=== PATIENT | male | born 1990 | race Caucasian/White ===

== ENCOUNTER 2021-09-23 23:23 | Emergency (ER) | payer MEDICAID ==
[~2021-09-23] VITALS: Ht 170.2 cm; Wt 60.0 kg
[2021-09-23] MEDS ORDERED: BACITRACIN ZINC OINT UDPKT TOP ONE (23:30)
[2021-09-23] MEDS ORDERED: TETANUS, DIPHTHERIA, PERTUSSIS VAC/PF 0.5ML (>10YR OLD) IM ONE (23:30)
[2021-09-23] MEDS ORDERED: LIDOCAINE HCL/PF 1% 10 MG/ML 5ML VIAL INFIL ONE (23:30)
[2021-09-23] MEDS ORDERED: HYDROCODONE/ACETAMINOPHEN 5/325MG TABLET PO ONE (23:30)
[2021-09-23] MEDS ORDERED: LIDOCAINE HCL 1% 10 MG/ML 10ML VIAL INJ NR (23:48)
[2021-09-24 00:18] VITALS: BP 121/70
[2021-09-24] MEDS ORDERED: ONDANSETRON 4MG ODT PO ONE (02:30)
[2021-09-24] MEDS ORDERED: CIPR500T5 MT (03:12)
[2021-09-24] MEDS ORDERED: HYDR-4001 MT (03:12)
[2021-09-24] MEDS ORDERED: BO1 TP (03:12)
== END 2021-09-24 03:36 | disposition home or self-care (01) ==
LOC: ER 23:23
DX: S01.311A Laceration without foreign body of right ear, initial encounter (principal); S06.890A Other specified intracranial injury without loss of consciousness, initial encounter; S00.03XA Contusion of scalp, initial encounter; F12.10 Cannabis abuse, uncomplicated; Y04.0XXA Assault by unarmed brawl or fight, initial encounter; Y93.89 Activity, other specified; Y92.89 Other specified places as the place of occurrence of the external cause
CPT/HCPCS: 12011; 70450; 70486; 72125; 73090; 90471; 90715; 99284; J3490; Q0162